=== PATIENT | male | born 2000 | race African-American/Black ===

== ENCOUNTER 2019-04-01 18:12 | Emergency (ER) | payer SELFPAY ==
[~2019-04-01] VITALS: Ht 177.8 cm; Wt 61.2 kg
[2019-04-01 18:52] VITALS: BP 144/96
[2019-04-01] MEDS ORDERED: cefTRIAXone IM 250 MG VIAL IM ONE (19:00)
[2019-04-01] MEDS ORDERED: metroNIDAZOLE 500 MG TABLET PO ONE (19:00)
[2019-04-01] MEDS ORDERED: AZITHROMYCIN 250 MG TABLET. PO ONE (19:00)
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
[2019-04-01] MEDS ORDERED: CYCL10TA2 PO (20:57)
[2019-04-01] MEDS ORDERED: NAPR500T8 PO (20:57)
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
--- NOTE | 2019-04-01 21:14 | RAD ---
Three views left shoulder History: pain Internally and externally rotated AP of shoulder obtained, as well as "Y" view. The glenohumeral relationship is normal. The visualized osseous structures appear normal. Impression: No acute findings. end impression Electronically signed by: Chris Levine III, MD (04/01/2019 9:11 PM) [facility]
== END 2019-04-01 21:07 | disposition home or self-care (01) ==
LOC: ER 18:12
DX: S13.4XXA Sprain of ligaments of cervical spine, initial encounter (principal); M25.512 Pain in left shoulder; V89.2XXA Person injured in unspecified motor-vehicle accident, traffic, initial encounter; Y93.I9 Activity, other involving external motion; Y92.488 Other paved roadways as the place of occurrence of the external cause; Y99.8 Other external cause status
CPT/HCPCS: 72125; 73030; 99284-25

== ENCOUNTER 2020-02-20 10:03 | Emergency (ER) | payer OTHER ==
[~2020-02-20] VITALS: Ht 157.5 cm; Wt 64.5 kg
[~2020-02-20 10:03] MED LIST: CYCL10TA2 PO; NAPR500T8 PO
[2020-02-20 11:01] VITALS: BP 142/63
--- NOTE | 2020-02-20 11:52 | PHYS DOC ---
Past Medical History Past Medical History: No Pertinent History Past Surgical History: No Surgical History Smoking Status: Never Smoker Alcohol Use: None Drug Use: None General Adult EDM: Chief Complaint: INSECT BITE HPI: HPI: 19-year-old male who denies any significant past medical history presents to the ED with complaints of multiple painful/mildly pruritic bee stings that occurred approximately 10 minutes prior to arrival. Patient reports he was swarmed by yellow large bees. No prior history of allergic reaction, anaphylaxis or lung disease. States he did not see any stingers or have to remove any of them. Review of systems: Denies associated fever, chills, cough, dyspnea, sore throat, nausea, vomiting, diarrhea, dull pain, headache, neck stiffness, chest pain, dyspnea, hemoptysis, orthopnea, leg swelling, drooling, speech changes, head/face or neck swelling. Review of Systems: Review of Systems: Constitutional: Denies fever or chills. [] Eyes: Denies change in visual acuity. [] HENT: Denies nasal congestion or sore throat. [] Respiratory: Denies cough or shortness of breath. [] Cardiovascular: Denies chest pain or edema. [] GI: Denies abdominal pain, nausea, vomiting, bloody stools or diarrhea. [] : Denies dysuria. [] Musculoskeletal: Denies back pain or joint pain. [] Integument: Denies rash. [] Neurologic: Denies headache, focal weakness or sensory changes. [] Endocrine: Denies polyuria or polydipsia. [] Lymphatic: Denies swollen glands. [] Psychiatric: Denies depression or anxiety. [] Heart Score: Risk Factors: Risk Factors: DM, Current or recent (<one month) smoker, HTN, HLP, family history of CAD, obesity. Risk Scores: Score 0 - 3: 2.5% MACE over next 6 weeks - Discharge Home Score 4 - 6: 20.3% MACE over next 6 weeks - Admit for Clinical Observation Score 7 - 10: 72.7% MACE over next 6 weeks - Early Invasive Strategies Allergies: Allergies: Allergies Coded Allergies Type Severity Reaction Last Updated Verified No Known Drug Allergies 02/20/20 No Physical Exam: PE: Constitutional: Well developed, well nourished, no acute distress, non-toxic appearance. [] HENT: Normocephalic, atraumatic, bilateral external ears normal, oropharynx moist, no oral exudates, Mallampati 1, no oropharyngeal edema, nose normal. [] Eyes: EOMI, conjunctiva normal, no discharge. [] Neck: Normal range of motion, no tenderness, supple, no stridor. [] Cardiovascular:Heart rate regular rhythm, no murmur [] Lungs & Thorax: Bilateral breath sounds clear to auscultation [] Abdomen: Bowel sounds normal, soft, no tenderness, no masses, no pulsatile masses. [] Skin: Warm, dry, no erythema, no rash. [] Back: No tenderness, no CVA tenderness. [] Extremities: No tenderness, no cyanosis, no clubbing, ROM intact, no edema. [] 2 mm focus of erythema from bites, 3 seen on right upper extremity, 2 on left upper extremity and one on patient's right upper back-no stingers Neurologic: Alert and oriented X 3, normal motor function, normal sensory function, no focal deficits noted. [] Psychologic: Affect normal, judgement normal, mood normal. [] Current Patient Data: Vital Signs: Vital Signs Date Time Temp Pulse Resp B/P (MAP) Pulse Ox O2 Delivery O2 Flow Rate FiO2 02/20/20 11:01 97.7 110 18 142/63 (89) 94 Room Air 97.7 EKG: EKG: [] Radiology/Procedures: Radiology/Procedures: [] Course & Med Decision Making: Course & Med Decision Making Pertinent Labs and Imaging studies reviewed. (See chart for details) Concern for accidental bee stings, 6 seen on physical exam-appropriate local reaction. Patient's vaccines including tetanus are up-to-date. Patient well- appearing, speaking full sentences, no respiratory distress or drooling or oral pharyngeal edema. Recommended [id number] antihistamines prn for itching. [facility] Life-threatening processes were considered but are low suspicion at this time, given history and physical exam. Pt was educated on all prescription medications and adverse effects. All patient's questions were answered and pt was stable at time of discharge. Differential includes anaphylaxis, angioedema, shock, contrast induced allergic reaction, carcinoid syndrome, asthma exacerbation. I spoken with the patient and her caregivers. I explained the patient's condition, diagnoses and treatment plan based on the information available to me at this time. I have answered the patient and her caregiver's questions and addressed any concerns. The patient and her caregivers have a good u nderstanding of patient's diagnosis, condition and treatment plan as can be expected at this point. Vital signs have been stable. Patient's condition is stable and appropriate for discharge from the emergency department. Patient will pursue further outpatient evaluation with primary care physician or other designated or consulting physician as outlined in the discharge instruct ions. The patient and/or caregivers are agreeable to this plan of care and follow-up instructions have been explained in detail. The patient and/or caregivers have received these instructions in written form and have expressed an understanding of the discharge instructions. The patient and/or caregivers are aware that any significant change of condition or worsening of symptoms should prompt immediate return to this or the closest emergency department or call to 911. Spring Disclaimer: Spring Disclaimer: This electronic medical record was generated, in whole or in part, using a voice recognition dictation system. Departure Departure Impression: Primary Impression: Accidental bee sting Disposition: 01 HOME, SELF-CARE Condition: STABLE Referrals: NO PCP (PCP) Patient Instructions: Bee, Wasp, or Hornet Sting Justicifation of Admission Dx: Justifications for Admission: Justification of Admission Dx: N/A SMITHA GLASGOW DO Feb 20, 2020 11:52
== END 2020-02-20 12:09 | disposition home or self-care (01) ==
LOC: ER 10:03
DX: T63.441A Toxic effect of venom of bees, accidental (unintentional), initial encounter (principal); Y92.89 Other specified places as the place of occurrence of the external cause
CPT/HCPCS: 99281; 99282